=== PATIENT | female | born 1995 | race Caucasian/White ===

== ENCOUNTER 2023-04-25 17:02 | Emergency (ER) | payer OTHER, SELFPAY ==
--- NOTE | 2023-04-25 18:02 | ED.HA ---
HPI - Headache General Chief Complaint: Headache Stated Complaint: migraine 12 wks Time Seen by Provider: 04/25/23 20:59 Source: patient Mode of arrival: ambulatory Limitations: no limitations History of Present Illness HPI Narrative: Patient comes to the emergency room complaining of 3 hours of a migraine headache. Patient states that she has blurred vision out of her left eye, severe headache on the right side. Patient states that she has never had migraines before. Patient complaining of nausea, no vomiting or diarrhea. Patient denies any abdominal cramping, no spotting or vaginal bleeding. Patient states that prior to arrival she took Tylenol without any relief Related Data Allergies Allergy/AdvReac Type Severity Reaction Status Date / Time No Known Allergies Allergy Verified 04/25/23 18:02 Review of Systems Review of Systems: Constitutional : No Weight loss, No Fever, No Chills, No Night Sweats, No Fatigue, No Malaise ENT/Mouth : No Hearing loss, No Ear Pain, No Nasal Congestion, No Sinus Pain, No Hoarseness, No sore throat, No Rhinorrhea, No Swallowing Difficulty Eyes: No Eye Pain, No Swelling, No Redness, No Foreign Body, No Discharge, No Vision Changes Cardiovascular : No Chest Pain, No SOB, No Dyspnea on Exertion, No Orthopnea, No Edema, No Palpitations Respiratory : No Cough, No Sputum, No Wheezing, No Smoke Exposure, No Dyspnea Gastrointestinal : No Nausea, No Vomiting, No Diarrhea, No Constipation, No abdominal Pain, No Hematochezia, No Melena Genitourinary : no irregular bleeding, No Dysuria, No Urinary Frequency, No Hematuria, No Urinary Incontinence, No Urgency, No Flank Pain, No Urinary Flow Changes, No Hesitancy Musculoskeletal : No joint pain, No Myalgias, No Joint Swelling Skin : No Skin Lesions, No rash Neuro : No Weakness, No Numbness, No Paresthesias, No Loss of Consciousness, No Dizziness, complaining of headache, visual changes Psych : No Anxiety/Panic, No Depression, No SI/HI/AH/VH, No Social Issues, Heme/Lymph: No Bruising, No Bleeding,No Lymphadenopathy Endocrine : No Polyuria, No Polydipsia, No Temperature Intolerance PMFSH Social History Social History Smoked in Last 30 Days: No Use of substances other than those prescribed or required for medical reasons: No Advance Directives: No Advance Directives Information Provided: No Patient : Yes Physical Exam Vital Signs: Vital Signs: Last Vital Signs Temp 98.3 F 04/25/23 20:51 Pulse 80 04/25/23 20:51 Resp 18 04/25/23 20:51 BP 101/64 04/25/23 20:51 Pulse Ox 99 04/25/23 20:51 O2 Del Method Room Air 04/25/23 20:51 BMI result Body Mass Index 34.0 Const: Other: Appearance: Alert. Oriented X3. No acute distress. Well-appearing Eyes: Pupils equal, round and reactive to light. Patient has photophobia ENT: Pharynx normal. Neck: Normal inspection. Neck supple. No lymph nodes noted. No crepitus CVS: Normal heart rate and rhythm. Pulses normal. Normal S1 and S2 Respiratory: No respiratory distress. Breath sounds normal. No Wheezing. No rales Abdomen: Soft and nontender. No rigidity. No distention. Skin: Skin warm and dry. Normal skin color. Normal skin turgor. Extremities: No lower extremity edema. No Lacerations. No Rash Neuro: Oriented X 3. No motor deficit. No sensory deficit. Moving all extremities. No slurred speech. CN 2 through 12 grossly intact Psych: calm, cooperative, normal affect Course Course Course Narrative: RME: Right sided headache with left sided vision changes. No Tylenol use as she states that she does not 'do well' with pills and vomits. 12 weeks , followed by [facility], with light vaginal bleeding daily. Has had an ultrasound with progressing Reevaluation(s) Reevaluation #1: 27-year-old female 12 weeks seen initially by Dr. Henry patient was given IV fluids/Benadryl/Reglan/morphine. Patient reported improvement after the fluids and the medication, no significant symptoms at this point, declined abdominal pain or cramps, no vaginal bleeding. Patient is requesting to go home and sleep it off. Time: 12:00 Medications Administered Discontinued Medications Generic Name Dose Route Start Last Admin Trade Name Freq PRN Reason Stop Dose Admin Acetaminophen 650 mg 04/25/23 18:05 04/25/23 21:15 Acetaminophen Oral Liquid 650 Mg/20.3 Ml Solution PO 04/25/23 18:06 Not Given ONCE ONE Diphenhydramine HCl 25 mg 04/25/23 21:04/25/23 21:21 Diphenhydramine Hcl 50 Mg/Ml Vial IVPUSH 04/25/23 21:07 25 mg ONCE ONE Administration Sodium Chloride 1,000 mls @ 999 mls/hr 04/25/23 21:05 04/25/23 21:20 Ns IVCONT 04/25/23 22:05 999 mls/hr .Q1H1M ONE Administration Metoclopramide HCl 10 mg 04/25/23 21:05 04/25/23 21:22 Metoclopramide Hcl 10 Mg/2 Ml Vial IVPUSH 04/25/23 21:06 10 mg ONCE ONE Administration Morphine Sulfate 4 mg 04/25/23 21:05 04/25/23 21:21 Morphine Sulfate 4 Mg/Ml Cartridge IVPUSH 04/25/23 21:06 4 mg ONCE ONE Administration Protocol Medical Decision Making Medical Decision Making [facility] Narrative: My interpretation of labs: Patient has normal hematology and chemistry. -at this time, patient awaiting medication administration: IV fluids, Reglan, Benadryl, morphine -sign-out given to my colleague Dr. Ruiz Differential Diagnosis Differential Diagnoses: The differential diagnosis associated with the presentation includes (Tension headache, migraine headache, cluster headache) Admission/Observation Consideration of admission/observation: Escalation of care including admission/observation considered (Given patient's presentation, admission considered) Lab Data [facility] Lab Attestation statement: I reviewed the patient's lab results. 04/25/23 18:58 04/25/23 18:58 Labs: Lab Results 04/25/23 Range/Units 18:58 WBC 8.8 (4.8-10.8) X10*3/uL RBC 4.41 (4.20-5.50) X10*6/uL Hgb 12.5 (12.0-16.0) g/dl Hct 37.1 (37.0-47.0) % MCV 84.1 (80.0-98.0) fL MCH 28.3 (27.0-33.0) pg MCHC 33.7 (31.0-35.0) g/dl RDW 13.4 (11.0-16.0) % Plt Count 241 (160-400) X10*3/uL MPV 10.5 (9.4-12.3) fL Immature Gran % (Auto) 0.2 (0.0-0.4) % Neut % (Auto) 69.9 (45-73) % Lymph % (Auto) 23.7 (20-40) % Blanco % (Auto) 5.8 (2-11) % Eos % (Auto) 0.2 (0-4) % Baso % (Auto) 0.2 (0-2) % Lymph # (Auto) 2.1 (1.2-4.9) X10*3/uL Blanco # (Auto) 0.5 (0.1-1.2) X10*3/uL Eos # (Auto) 0.0 (0.0-0.4) X10*3/uL Baso # (Auto) 0.0 (0.0-0.2) X10*3/uL Abs Immat Gran (auto) 0.02 (0.00-0.03) X10*3/uL Absolute Neuts (auto) 6.1 (2.0-8.3) x10*3/uL Absolute Nucleated RBC 0.000 (0.0-0.012) X10*3/uL Nucleated RBC % (auto) 0.0 (0.0-0.2) /100WBC Sodium 142 (135-145) mmol/L Potassium 3.4 (3.3-5.1) mmol/L Chloride 108 (96-108) mmol/L Carbon Dioxide 23 (22-29) mmol/L Anion Gap 14 (12-20) BUN 6 L (9-16) mg/dL Creatinine 0.54 (0.5-1.4) mg/dL Estim Creat Clear Calc 162.2 Estimated GFR > 60 Random Glucose 76 (60-115) mg/dL Calcium 9.5 (8.4-10.2) mg/dL Total Bilirubin 0.3 (0.0-1.0) mg/dL AST 12 (5-31) U/L ALT 8 (0-31) U/L Alkaline Phosphatase 78 (39-117) U/L Total Protein 7.2 (6.5-8.0) g/dL Albumin 3.9 (3.5-5.0) g/dL Beta HCG, Quant 58308 mIU/mL Critical Care Time Critical Care Time Critical Care Time: Yes Total Critical Care Time: 45 Attestation: I have personally provided critical care time. Time includes review of lab data, radiology results, discussion with consultants, and monitoring for potential decompensation. Intervention performed as documented. Discharge Plan Discharge Clinical Impression: Migraine Patient Disposition: Home, Self-Care Instructions: Migraine Headache (ED) Additional Instructions: Drink plenty fluids, if the headache persist or getting worse please return for re-evaluation otherwise follow-up with OB.
[2023-04-25 18:03] VITALS: BP 127/88; PULSE 92; RESP 16; O2SAT 98; BMI 34.0
[2023-04-25 19:06] LABS: MANUAL DIFF FLAG NO
[2023-04-25 19:07] LABS: Basophils Percent Auto 0.2 % (0-2); Eosinophils Percent Auto 0.2 % (0-4); Hematocrit 37.1 % (37.0-47.0); Hemoglobin 12.5 g/dl (12.0-16.0); Imm Gran Abs Auto 0.02 X10*3/uL (0.00-0.03); Imm Gran Pct Auto 0.2 % (0.0-0.4); Lymphocytes Absolute Auto 2.1 X10*3/uL (1.2-4.9); Lymphocytes Percent Auto 23.7 % (20-40); Mean Corpuscular HGB Conc 33.7 g/dl (31.0-35.0); Mean Corpuscular Hemoglobin 28.3 pg (27.0-33.0); Mean Corpuscular Volume 84.1 fL (80.0-98.0); Mean Platelet Volume 10.5 fL (9.4-12.3); Monocytes Absolute Auto 0.5 X10*3/uL (0.1-1.2); Monocytes Percent Auto 5.8 % (2-11); Neutrophils Absolute Auto 6.1 x10*3/uL (2.0-8.3); Neutrophils Percent Auto 69.9 % (45-73); Platelet Count 241 X10*3/uL (160-400); Red Blood Count 4.41 X10*6/uL (4.20-5.50); Red Cell Distribution Width 13.4 % (11.0-16.0); White Blood Count 8.8 X10*3/uL (4.8-10.8)
[2023-04-25 19:22] LABS: Alanine Aminotransferase 8 U/L (0-31); Albumin Level 3.9 g/dL (3.5-5.0); Alkaline Phosphatase 78 U/L (39-117); Anion Gap 14 (12-20); Aspartate Amino Transferase 12 U/L (5-31); Bilirubin Total 0.3 mg/dL (0.0-1.0); Blood Urea Nitrogen 6 mg/dL (9-16); Calcium 9.5 mg/dL (8.4-10.2); Carbon Dioxide 23 mmol/L (22-29); Chloride 108 mmol/L (96-108); Creatinine Clr Calc Pharmacy 162.2; Estimated Glomerular Filt Rate > 60; Glucose Random 76 mg/dL (60-115); Potassium 3.4 mmol/L (3.3-5.1); Sodium 142 mmol/L (135-145); Total Protein 7.2 g/dL (6.5-8.0)
[2023-04-25 19:48] LABS: HCG Quantitative 61384 mIU/mL
[2023-04-25 20:51] VITALS: BP 101/64; PULSE 80; RESP 18; TEMP 36.8; O2SAT 99
[2023-04-25] MEDS: 0.9 % Sodium Chloride 1,000 ML 999 ML IVCONT (21:20)
[2023-04-25] MEDS: diphenhydrAMINE HCL 50 MG/ML VIAL 25 MG IVPUSH (21:21)
[2023-04-25] MEDS: Morphine Sulfate 4 MG/ML CARTRIDGE IVPUSH (21:21)
[2023-04-25] MEDS: Metoclopramide HCl 10 MG/2 ML VIAL IVPUSH (21:22)
--- OUTSIDE RECORDS SUMMARY | 2023-04-25 22:28 | XMS_ITS | Continuity of Care Document ---
Author Name Unknown Organization [facility] ter Address [address] [place] [address]- Care Team Providers Care Package Maker Name Role Phone Not on Staff, PCP Primary Care Physician Unavail able Encounter [facility] [place] Date(s): 10/24/19 - 10/25/[address] [address]- [facility] Discharge Disposition: A-D/C Home Attending Physician: Tomazs Fournier MD Admitting Physician: Tomasz Fournier MD Referring Physician: Not on Staff, Referring MD Allergies, Adverse Reactions, Alerts No Known Medication Allergies Immunizations Given and Recorded Vaccine Date Status Refusal Reason influenza virus vaccine, inactivated 1 04/20/18 Gi randal 1Early/Late Reason: Other : patient sleeping Medications acetaminophen 325 mg oral tablet 650 mg, By Mouth, Every 6 hours, # 30 tablet, Refills 0, Tot. Refills 0, Maintenance, 04/21/18 14:53:56 EST, Route to Pharmacy Electronically, [id number], [facility] Start Date: 04/21/18 Status: Ordered docusate sodium 100 mg oral capsule 100 mg, 1, capsule, By Mouth, 2 times a day, # 60 capsule, Refills 0, Tot. Refills 0, Maintenance, 04/21/18 15:05:27 EST, Route to Pharmacy Electronically, [id number], [facility] Start Date: 04/21/18 Status: Ordered ferrous sulfate 325 mg oral tablet 1 tablet = 325 mg, By Mouth, Daily, 0 Refills, Maintenance, 04/19/18 21:20:13 EST Start Date: 04/19/18 Status: Ordered ibuprofen 800 mg oral tablet 800 mg, By Mouth, Every 8 hours, PRN, (4-6), may give 400mg per patient preference and re-dose syic125pi within 8 hours if needed. Patient should only receive a total of 800mg of Ibuprofen every 8 hours., Refills 0, Maintenance, Pain , Moderate, 02... Start Date: 05/13/18 Status: Ordered naproxen 500 mg oral delayed release tablet 1 tablet = 500 mg, By Mouth, 2 times a day, for 7 days, do not chew or break tablets with food, # 14 tablet, 0 Refills, Acute 11/01/19 7:31:00 EDT, 10/25/19 7:31:00 EDT, EC Tablet, [facility] #[id number], 160, cm, 05/13/18 9:49:00 EST, Height, 9... Start Date: 10/25/19 Stop Date: 11/01/19 Status: Ordered oxyCODONE 5 mg oral tablet 5 mg, 1, tablet, By Mouth, Every 6 hours, PRN, for 5 days, Do not drive or drink alcohol while taking this medication. Partial fill of Rx is OK., # 20 tablet, Refills 0, Tot. Refills 0, Acute 10/30/19 7:31:00 EDT, for pain, 10/25/19 7:31:00 EDT, Ro... Start Date: 10/25/19 Stop Date: 10/30/19 Status: Ordered Multivitamins By Mouth, Daily, 0 Refills, Maintenance, 04/19/18 21:20:34 EST Start Date: 04/19/18 Status: Ordered Senna 8.6 mg oral tablet 17.2 mg, 2, tablet, By Mouth, Daily, PRN, # 12 tablet, Refills 0, Tot. Refills 0, Maintenance, Constipation, 04/21/18 15:05:43 EST, Route to Pharmacy Electronically, [id number], [facility] Tablet Start Date: 04/21/18 Status: Ordered Problem List Condition Effective Dates Status Health Status Inform ant Anemia(Confirmed) Active Immune thrombocytopenia(Confirmed) Active Tachycardia(Confirmed) Active Results Radiology Reports * Exam Date Time Procedure Performing Provider Status 10/25/19 12:39 AM Knee 1 or 2 Views Right Platt, Geovanna M; Auth (Verified) Notes: (Knee 1 or 2 Views Right) Reason For Exam: with Pain;Trauma RESULT: Knee 1 or 2 Views Right Knee 1 or 2 Views Right, 2 views Reason: Trauma; with Pain; Clinical Question(s): Fracture COMPARISON: None. FINDINGS: There is no evidence of acute or healing fracture, dislocation or bone lesion. No arthritic changes. No osteochondral defects or intra-articular loose bodies. No evidence of joint effusion. Normal soft tissues. IMPRESSION: Normal. WSN: [id number] Ordering Physician: Bud Mayo Dictated By: Marcos Null MD Dictated Date/Time: 10/25/19 8:07 am Reviewed By: Marcos Null MD Signed By: Marcos Null MD Signed Date/Time: 10/25/19 8:07 am Transcribed By: HARJINDER Transcribed Date/Time: 10/25/19 8:07 am * Exam Date Time Procedure Performing Provider Status 10/25/19 12:39 AM Ankle Min 3 Views Right Geovanna Platt (Verified) Notes: (Ankle Min 3 Views Right) Reason For Exam: with Pain;Trauma RESULT: Ankle Min 3 Views Right Ankle Min 3 Views Right Reason: Trauma; with Pain; Clinical Question(s): Fracture. COMPARISON: None. FINDINGS: No evidence of acute or healing fracture or bone lesion. No malalignment. Intact ankle mortise and talar dome. No arthritic changes. Marked soft tissue swelling most prominent laterally. IMPRESSION: No fracture or dislocation. Lateral soft tissue swelling. WSN: [id number] Ordering Physician: Bud Mayo Dictated By: Marcos Null MD Dictated Date/Time: 10/25/19 8:07 am Reviewed By: Marcos Null MD Signed By: Marcos Null MD Signed Date/Time: 10/25/19 8:07 am Transcribed By: CSKeyanna Transcribed Date/Time: 10/25/19 8:06 am Vital Signs Most recent to oldest [Reference Range]: 1 2 3 Oxygen Saturation [94-100 %] 99 % (10/25/19 6:00 AM) 98 % (10/25/19 4:53 AM) 97 % (10/25/19 3:00 AM) Pulse Rate [55-90 bpm] 83 bpm (10/25/19 6:00 AM) 89 bpm (10/25/19 4:53 AM) 100 bpm *H* (10/25/19 3:00 AM) Blood Pressure [90-138/55-84 mm Hg] 121/60mm Hg (10/25/19 6:00 AM) 124/76mm Hg (10/25/19 4:53 AM) 129/76mm Hg (10/25/19 3:00 AM) Respiratory Rate [16-30 br/min] 20 br/min (10/25/19 7:20 AM) 15 br/min *L* (10/25/19 7:07 AM) 16 br/min (10/25/19 6:00 AM) Temperature [96.8-100.4 DegF] 97.9 DegF (10/25/19 4:53 AM) 99.5 DegF (10/24/19 11:27 PM) Mode of Delivery (Oxygen) Room air (10/25/19 6:00 AM) Room air (10/25/19 4:53 AM) Room air (10/25/19 3:00 AM) Blood pressure sites Arm, left (10/25/19 6:00 AM) Arm, left (10/25/19 4:53 AM) Arm, left (10/25/19 3:00 AM) Temperature Route Oral (10/25/19 4:53 AM) Oral (10/24/19 11:27 PM) Social History Social History Type Response Smoking Status Never (less than 100 in lifetime); Tobacco user in household: No entered on: 05/10/18 Sex
--- OUTSIDE RECORDS SUMMARY | 2023-04-25 22:28 | XMS_ITS | Continuity of Care Document ---
Author Name Unknown Organization [facility] ter Address [address] [place] [address]- Care Team Providers Care Payroll Examiner Name Role Phone Not on Staff, PCP Primary Care Physician Unavail able Encounter [facility] Date(s): 01/10/20 - 01/10/[address] [address] Encounter Diagnosis Acute sore throat(Final) - 01/10/20 Discharge Disposition: A-D/C Home Attending Physician: Jose BONILLA (ED), Rebecca Samuel Admitting Physician: Jose BONILLA (ED), Rebecca Samuel Referring Physician: Not on Staff, Referring MD [...] 04/21/18 14:53:56 EST, Route to Pharmacy Electronically, [id number], [facility] Start Date: 04/21/18 Status: Ordered docusate sodium 100 mg oral capsule 100 mg, 1, capsule, By Mouth, 2 times a day, # 60 capsule, Refills 0, Tot. Refills 0, Maintenance, 04/21/18 15:05:27 EST, Route to Pharmacy Electronically, [id number], [facility] Start Date: 04/21/18 Status: Ordered ferrous sulfate 325 mg oral tablet 1 tablet = 325 mg, By Mouth, Daily, 0 Refills, Maintenance, 04/19/18 21:20:13 EST Start Date: 04/19/18 Status: Ordered ibuprofen 600 mg oral tablet 600 mg, 1, tablet, By Mouth, 4 times a day, PRN, # 40 tablet, Refills 0, Tot. Refills 0, Acute 01/20/20 12:00:00 EST, for pain, 01/10/20 13:59:00 EDT, Route to Pharmacy Electronically, [facility] #[id number], 160, cm, 05/13/18 9:49:00 EST, Height... Start Date: 01/10/20 Stop Date: 01/20/20 Status: Ordered Magic Mouthwash Magic Mouthwash, See Instructions, # 90 mL, Refills 0, Tot. Refills 0, Maintenance, Mix equal parts(30 mL each) of liquid Maalox, liquid Benadryl (12.5 mg/5 mL) and vicscous lidocaine. Take 5 mL TIDfor swish and spit, 01/10/20 13:59:00 EDT, Supply,... Start Date: 01/10/20 Status: Ordered ondansetron 4 mg oral tablet, disintegrating 1 tablet = 4 mg, By Mouth, Every 8 hours, PRN as needed for nausea/vomiting, # 10 tablet, 0 Refills, Maintenance, 01/10/20 14:51:00 EDT, DIS Tablet, [facility] #[id number], 160, cm, 05/13/18 9:49:00 EST, Height, 90, kg, 05/10/18 22:13:00 EST, Dry... Start Date: 01/10/20 Status: Ordered Multivitamins By Mouth, Daily, 0 Refills, Maintenance, 04/19/18 21:20:34 EST Start Date: 04/19/18 Status: Ordered Senna 8.6 mg oral tablet 17.2 mg, 2, tablet, By Mouth, Daily, PRN, # 12 tablet, Refills 0, Tot. Refills 0, Maintenance, Constipation, 04/21/18 15:05:43 EST, Route to Pharmacy Electronically, [id number], [facility] Tablet Start Date: 04/21/18 Status: Ordered Problem List Condition Effective Dates Status Health Status Inform ant Anemia(Confirmed) Active Immune thrombocytopenia(Confirmed) Active Tachycardia(Confirmed) Active Vital Signs Most recent to oldest [Reference Range]: 1 2 Oxygen Saturation [94-100 %] 100 % (01/10/20 2:25 PM) 100 % (01/10/20 12:47 PM) Pulse Rate [55-90 bpm] 102 bpm *H* (01/10/20 2:25 PM) 139 bpm *H* (01/10/20 12:47 PM) Blood Pressure [90-138/55-84 mm Hg] 101/ 59mm Hg (01/10/20 2:25 PM) 116/79mm Hg (01/10/20 12:47 PM) Respiratory Rate [16-30 br/min] 18 br/mi n (01/10/20 2:25 PM) 18 br/min (01/10/20 12:47 PM) Temperature [96.8-100.4 DegF] 100.1 DegF (01/10/20 2:25 PM) 102.9 DegF *H* (01/10/20 12:47 PM) Mode of Delivery (Oxygen) Room air (01/10/20 2:25 PM) Room air (01/10/20 12:47 PM) Blood pressure sites Arm, left (01/10/20 2:25 PM) Arm, left (01/10/20 12:47 PM) Temperature Route Oral (01/10/20 2:25 PM) Oral (01/10/20 12:47 PM) Social History Social History Type Response Smoking Status Never (less than 100 in lifetime); Tobacco user in household: No entered on: 05/10/18 Sex
--- OUTSIDE RECORDS SUMMARY | 2023-04-25 22:28 | XMS_ITS | Continuity of Care Document ---
Author Name Unknown Organization [facility] ter Address [address] [place] [address]- Care Team Providers Care Family Therapist Name Role Phone Not on Staff, PCP Primary Care Physician Unavail able [place] [facility] [place] 04/01/[address] [address]- Discharge Disposition: Transferred to short-term general hospit Attending Physician: Yoandy Stubbs MD Admitting Physician: Yoandy Stubbs MD Referring Physician: Not on Staff, Referring [...] 04/21/18 14:53:56 EST, Route to Pharmacy Electronically, [id number], [facility] Start Date: 04/21/18 Status: Ordered docusate sodium 100 mg oral capsule 100 mg, 1, capsule, By Mouth, 2 times a day, # 60 capsule, Refills 0, Tot. Refills 0, Maintenance, 04/21/18 15:05:27 EST, Route to Pharmacy Electronically, [id number], [facility] Start Date: 04/21/18 Status: Ordered ferrous sulfate 325 mg oral tablet 1 tablet = 325 mg, By Mouth, Daily, 0 Refills, Maintenance, 04/19/18 21:20:13 EST Start Date: 04/19/18 Status: Ordered Magic Mouthwash Magic Mouthwash, See [...] Refills, Maintenance, 01/10/20 14:51:00 EDT, DIS Tablet, [facility] #[id number], 160, cm, 05/13/18 9:49:00 EST, Height, 90, kg, 05/10/18 22:13:00 EST, Dry... Start Date: 01/10/20 Status: Ordered Multivitamins By Mouth, Daily, 0 Refills, Maintenance, 04/19/18 21:20:34 EST Start Date: 04/19/18 Status: Ordered Senna 8.6 mg oral tablet 17.2 mg, 2, tablet, By Mouth, Daily, PRN, # 12 tablet, Refills 0, Tot. Refills 0, Maintenance, Constipation, 04/21/18 15:05:43 EST, Route to Pharmacy Electronically, [id number], [facility] Tablet Start Date: 04/21/18 Status: Ordered Problem List Condition Confirmation Course Effective Dates Status H ealth Status Informant Anemia Confirmed Active Immune thrombocytopenia Confirmed Active Tachycardia Confirmed Active Vital Signs Most recent to oldest [Reference Range]: 1 2 Height 158 cm (04/01/23 2:01 PM) Oxygen Saturation [94-100 %] 100 % (04/01/23 2:01 PM) 99 % (04/01/23 1:59 PM) Pulse Rate [55-90 bpm] 104 bpm *H* (04/01/23 2:01 PM) 130 bpm *H* (04/01/23 1:59 PM) Blood Pressure [90-138/55-84 mm Hg] 138/ 96mm Hg (04/01/23 2:01 PM) Respiratory Rate [16-30 br/min] 22 br/mi n (04/01/23 2:01 PM) 18 br/min (04/01/23 1:59 PM) Temperature [96.8-100.4 DegF] 97.9 DegF (04/01/23 2:01 PM) Mode of Delivery (Oxygen) Room air (04/01/23 2:01 PM) Room air (04/01/23 1:59 PM) Temperature Route Oral (04/01/23 2:01 PM) Dry Weight 90.8 kg (04/01/23 2:01 PM) Social History Social History Type Response Smoking Status Never (less than 100 in lifetime); Tobacco user in household: No entered on: 05/10/18 Sex Patient Care team information Care Team Personnel Name: Not on Staff, PCP Position: [facility] Physician (General Medicine) Member Role: PCP Name: Hank PAREDES, Janki Friend Position: [facility] Onco RN Member Role: Primary Care Nurse Care Team Related Persons Name: NOA KEYES Address: home [address] [place] [id number] Name: MIHIR ODOM Name: KAROL CERRATO Address: [employer] Address: home [address] [place] [address]
--- OUTSIDE RECORDS SUMMARY | 2023-04-25 22:28 | XMS_ITS | Continuity of Care Document ---
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 Name Role Phone Not on Staff, PCP Primary Care Physician Unavail able Encounter [facility] [place] Date(s): 08/02/22 - 08/02/[address] [address]- Discharge Disposition: A-D/C Walkout Attending Physician: Not on Staff, Attending MD Admitting Physician: Not on Staff, Admitting MD Referring Physician: Not on Staff, Referring [...] 04/21/18 14:53:56 EST, Route to Pharmacy Electronically, [id number], [facility] Start Date: 04/21/18 Status: Ordered docusate sodium 100 mg oral capsule 100 mg, 1, capsule, By Mouth, 2 times a day, # 60 capsule, Refills 0, Tot. Refills 0, Maintenance, 04/21/18 15:05:27 EST, Route to Pharmacy Electronically, [id number] , [facility] Start Date: 04/21/18 Status: [...] Refills, Maintenance, 01/10/20 14:51:00 EDT, DIS Tablet, [id number], 160, cm, 05/13/18 9:49:00 EST, Height, 90, kg, 05/10/18 22:13:00 EST, Dry... Start Date: 01/10/20 Status: Ordered Multivitamins By Mouth, Daily, 0 Refills, Maintenance, 04/19/18 21:20:34 EST Start Date: 04/19/18 Status: Ordered Senna 8.6 mg oral tablet 17.2 mg, 2, tablet, By Mouth, Daily, PRN, # 12 tablet, Refills 0, Tot. Refills 0, Maintenance, Constipation, 04/21/18 15:05:43 EST, Route to Pharmacy Electronically, [id number], [facility] Tablet Start Date: 04/21/18 Status: Ordered Problem List Condition Confirmation Course Effective Dates Status H ealth Status Informant Anemia Confirmed Active Immune thrombocytopenia Confirmed Active Tachycardia Confirmed Active Results Radiology Reports * Exam Date Time Procedure Performing Provider Status 08/02/22 8:20 AM Ankle Min 3 Views Left Donovan Carrera ; Auth (Verified) Notes: (Ankle Min 3 Views Left) Reason For Exam: Pain RESULT: Ankle Min 3 Views Left Left ankle 3 views Hx of Present Illness: Pain after twisting injury COMPARISON: None. FINDINGS: No evidence of acute or healing fracture or bone lesion. Intact ankle mortise and talar dome. No arthritic changes. Moderate lateral swelling. IMPRESSION: Lateral swelling but otherwise negative. WSN: [id number] Ordering Physician: Av Desai Dictated By: Flex Meyer MD Dictated Date/Time: 08/02/22 8:22 am Reviewed By: Flex Meyer MD Signed By: Flex Meyer MD Signed Date/Time: 08/02/22 8:22 am Transcribed By: HARJINDER Transcribed Date/Time: 08/02/22 8:21 am Vital Signs Most recent to oldest [Reference Range]: 1 2 Height 160 cm (08/02/22 7:44 AM) Oxygen Saturation [94-100 %] 100 % (08/02/22 9:40 AM) 100 % (08/02/22 7:44 AM) Pulse Rate [55-90 bpm] 113 bpm *H* (08/02/22 9:40 AM) 106 bpm *H* (08/02/22 7:44 AM) Blood Pressure [90-138/55-84 mm Hg] 122/ 55mm Hg (08/02/22 9:40 AM) 130/76mm Hg (08/02/22 7:44 AM) Respiratory Rate [16-30 br/min] 16 br/mi n (08/02/22 9:40 AM) 20 br/min (08/02/22 7:44 AM) Temperature [96.8-100.4 DegF] 98.3 DegF (08/02/22 9:40 AM) 97.7 DegF (08/02/22 7:44 AM) Mode of Delivery (Oxygen) Room air (08/02/22 9:40 AM) Room air (08/02/22 7:44 AM) Blood pressure sites Arm, left (08/02/22 9:40 AM) Arm, left (08/02/22 7:44 AM) Temperature Route Oral (08/02/22 9:40 AM) Oral (08/02/22 7:44 AM) Dry Weight 91 kg (08/02/22 7:44 AM) Social History Social History Type Response Smoking Status Never (less than 100 in lifetime); Tobacco user in household: No entered on: 05/10/18 Sex XR Ankle - left GE 3 Views * [facility] , CIS S: TRANSCRIBE Flex Meyer MD: VERIFY Event Display: Result: Authored Date: [id number] Left ankle 3 views Hx of Present Illness: Pain after twisting injury COMPARISON: None. FINDINGS: No evidence of acute or healing fracture or bone lesion. Intact ankle mortise and talar dome. No arthritic changes. Moderate lateral swelling. IMPRESSION: Lateral swelling but otherwise negative. WSN: [id number] Ordering Physician: Av Desai Dictated By: Flex Meyer MD Dictated Date/Time: 08/02/22 8:22 am Reviewed By: Flex Meyer MD Signed By: Flex Meyer MD Signed Date/Time: 08/02/22 8:22 am Transcribed By: HARJINDER Transcribed Date/Time: 08/02/22 8:21 am Patient Care team information Care Team Personnel Name: Not on Staff, PCP Position: [facility] Physician (General Medicine) Member Role: PCP Name: Janki Mckinney RN Position: [facility] Onco RN Member Role: Primary Care Nurse Care Team Related Persons Name: NOA KEYES Address: [place] [address] Name: MIHIR ODOM Name: KAROL CERRATO Address: [place] Address: home [address] [place] [address]
--- OUTSIDE RECORDS SUMMARY | 2023-04-25 22:28 | XMS_ITS | Continuity of Care Document ---
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 Name Role Phone Not on Staff, PCP Primary Care Physician Unavail able [place] [facility] [place]/01/[address] [address] Discharge Disposition: A-D/C Home Attending Physician: Pam Lemus MD Admitting Physician: Pam Lemus MD Referring Physician: Pam Lemus MD Allergies, Adverse Reactions, Alerts No Known Medication Allergies Immunizations Given and Recorded Vaccine Date Status Refusal Reason influenza virus vaccine, inactivated 1 04/20/18 Gi randal 1Early/Late Reason: Other : patient sleeping Medications acetaminophen 325 mg oral tablet 650 mg, By Mouth, Every 6 hours, # 30 tablet, Refills 0, Tot. Refills 0, Maintenance, 04/21/18 14:53:56 EST, Route to Pharmacy Electronically, [id number], [facility] Start Date: 04/21/18 Status: Ordered docusate sodium 100 mg oral capsule 100 mg, 1, capsule, By Mouth, 2 times a day, # 60 capsule, Refills 0, Tot. Refills 0, Maintenance, 04/21/18 15:05:27 EST, Route to Pharmacy Electronically, [id number], [facility] Start Date: 04/21/18 Status: [...] Refills, Maintenance, 01/10/20 14:51:00 EDT, DIS Tablet, [id number], 160, cm, 05/13/18 9:49:00 EST, Height, 90, kg, 05/10/18 22:13:00 EST, Dry... Start Date: 01/10/20 Status: Ordered Multivitamins By Mouth, Daily, 0 Refills, Maintenance, 04/19/18 21:20:34 EST Start Date: 04/19/18 Status: Ordered Senna 8.6 mg oral tablet 17.2 mg, 2, tablet, By Mouth, Daily, PRN, # 12 tablet, Refills 0, Tot. Refills 0, Maintenance, Constipation, 04/21/18 15:05:43 EST, Route to Pharmacy Electronically, [id number], [facility] Tablet Start Date: 04/21/18 Status: Ordered Problem List Condition Confirmation Course Effective Dates Status H ealth Status Informant Anemia Confirmed Active Immune thrombocytopenia Confirmed Active Tachycardia Confirmed Active Results Radiology Reports * Exam Date Time Procedure Performing Provider Status 04/01/23 4:54 PM US Transab d 1st Trimester Only Can Faith; Auth (Verified) Notes: (US Transabd 1st Trimester Only) Reason For Exam: Bleeding RESULT: US Transabd 1st Trimester Only US Transabd 1st Trimester Only Reason: Bleeding; Clinical Question(s): Demise; Order Comment: US < 14 Week 0 Day Transabdominal Single Prep COMPARISON: TECHNIQUE: Transabdominal pelvic ultrasound with grayscale and color Doppler analysis. FINDINGS: UTERUS AND GESTATIONAL STRUCTURES: Normal gestational sac containing a yolk sac is identified within the endometrial cavity. Single intrauterine with heart rate 85 BPM. Colma-rump length (CRL): 2.2 cm. Ultrasound age of 8w6d. Uterus: 11.9 x 6.8 x 8.6 cm, volume 365.0 cc. No masses. No abnormalities of the cervix. RIGHT OVARY: Size: 3.0 x 2.0 x 2.1 cm, volume 6.7 cc. Morphology: Normal echotexture. No pathologic cysts or mass. Normal color Doppler appearance. LEFT OVARY: Size: 2.9 x 2.2 x 2.8 cm, volume 9.3 cc. Morphology: Normal echotexture. No pathologic cysts or mass. Normal color Doppler appearance. FREE FLUID: None. IMPRESSION: Single live intrauterine . Estimated gestational age 8w6d. heart rate of 85 bpm is less than expected for this stage of . Therefore close interval monitoring is recommended. Estimated gestational age by ultrasound is concordant with estimated age by clinical parameters. An actionable message ([place]) has been communicated via the [employer] system on 04/01/2023 5:15 PM, Message ID [id number]. WSN: [id number] Ordering Physician: Cynthia Tamayo Dictated By: Memo Cunningham MD Dictated Date/Time: 04/01/23 5:15 pm Reviewed By: Memo Cunningham MD Signed By: Memo Cunningham MD Signed Date/Time: 04/01/23 5:15 pm Transcribed By: HARJINDER Transcribed Date/Time: 04/01/23 5:08 pm Vital Signs Most recent to oldest [Reference Range]: 1 Weight 88.4 kg (04/01/23 2:39 PM) Oxygen Saturation [94-100 %] 100 % (04/01/23 2:39 PM) Pulse Rate [55-90 bpm] 111 bpm *H* (04/01/23 2:39 PM) Blood Pressure [90-138/55-84 mm Hg] 144/ 82mm Hg *H* (04/01/23 2:39 PM) Respiratory Rate [16-30 br/min] 20 br/mi n (04/01/23 2:39 PM) Temperature [96.8-100.4 DegF] 98 DegF (04/01/23 2:39 PM) Mode of Delivery (Oxygen) Room air (04/01/23 2:39 PM) Blood pressure sites Arm, right 1 (04/01/23 2:39 PM) Temperature Route Oral (04/01/23 2:39 PM) Dry Weight 88.4 kg (04/01/23 2:39 PM) Weight Obtained Via Standing scale (04/01/23 2:39 PM) Dry Weight Obtained Via Standing scale (04/01/23 2:39 PM) 1Result Comment: upper arm measured 32cm Social History Social History Type Response Smoking Status Never (less than 100 in lifetime); Tobacco user in household: No entered on: 05/10/18 Sex Note * Lou Abbott RN: PERFORM Event Display: Discharge/Transfer Note Hospital Authored Date: [id number] Nursing Discharge Note Entered On: 04/01/2023 18:46 EST Performed On: 04/01/2023 18:46 EST by Lou Abbott RN Nursing Discharge Note 2 Discharge Time : 04/01/2023 18:45 EST Discharge Level of Care at Discharge : Home/Senior Living/Foster Care Driver 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 Utilized : No Patient Left Unit Via : Ambulatory Patient Accompanied Off Unit with : Significant other DC Instructions Provided & Signed by Pt : Yes Patient Understands D/C Instructions : Yes Verbalized Understanding of D/C Plan By : Patient Patient Instructions Discharge Signed : Yes Did Pt have Specialty Bed or Wound Vac : No Lou Abbott RN - 04/01/2023 18:46 EST * Lou Abbott RN: PERFORM Event Display: Patient Education/Instruction Authored Date: [id number] Inpatient Adult Discharge Instructions [address] [address] Name: JULIANNA CERRATO : 1995 Visit: 04/01/2023 14:30:00 Current Date: 04/01/2023 18:37 Account: [id number] Inpatient Adult Discharge Instructions We would like to thank you for allowing us to assist you with your healthcare needs. The following includes patient education materials and information regarding your injury/illness. Our entire staffstrives to provide an excellent experience for our patients and their families. PLEASE ENSURE YOU FOLLOW-UP PER THE INSTRUCTIONS BELOW! ?? YOUR OPINION IS IMPORTANT TO US! Please complete the survey you may receive by mail or email. Your feedback will be used to make improvements to the healthcare experiences of our patients and their families. Surveys are administered by [employer] ?? If further treatment with your primary care physician or another doctor is recommended, it is important for you to keep the appointment. Call your primary care physician or return to the Emergency Department immediately if your condition worsens, fails to improve, or new symptoms develop. If you need to find a doctor, you can call [facility] for a referral at [phone] or toll free at [phone] or log in to [email or web address].. ?? [facility], in keeping with [facility] guidance, no longer requires face masks for staff, patientsor visitors in most situations. Similiar to time spent indoors at other locations, there is the chance that you were exposed to repiratory viruses during your time with us (such as flu or COVID-19). If you develop symptoms concerning for a viral respiratory infection, please seek testing (and treatment if indicated) from your medical provider or home test kit. ?? You can view and manage your care through the patient portal or by using a health care harshil of your choosing. [employer] is a website that allows you to securely view your medical information including your hospital discharge summary, office visit summaries, medications and follow-up visits. You can also request appointments, renew medications, and request access to your medical information using a health care harshil of your choosing, or just ask a question. You can enroll at [email or web address] or register during your next office visit. You have been discharged from [facility], Patient Care Unit: WETU1. If you have any questions regarding these instructions after you leave, please call us and we will be happy to assist you. [facility] Your Care Team Attending Physician Pam Lemus MD Tests Performed Below is a partial list of the tests performed during your hospitalization. You may have had other tests and procedures not included in this list. Please discuss all test results with your provider. US Transabd 1st Trimester Only Primary Care Provider Not on Staff, PCP Advance Directive Health Care Proxy on File Yes - Health Care Proxy Discharge Vitals Temperature: 98 DegF Weight: 88.4 kg Pulse Rate:??111 bpm??High ?? Respiratory Rate: 20 br/min ?? Systolic Blood Pressure:??144 mm Hg??High ?? Diastolic Blood Pressure: 82 mm Hg ?? Oxygen Saturation: 100 % ?? Studies Pending All tests and labs ordered during this hospital stay have been completed unless listed below. Please discuss all pending results with your provider listed above in these instructions. ?? No incomplete studies found What to do next Instructions From Your Doctor Discharge Orders You Need to Schedule the Following Appointments Follow Up with??[facility] [phone] When:??In 3 days 04/04/2023 EST Discharge Medications JULIANNA CERRATO :1995 Visit Date:04/01/2023 Medications: Please continue your medications until treatment is completed or stopped by your provider. Medications not listed below should be discontinued. Discuss any questions related to medications with your provider. What How Much When Instructions Next Dose Unchanged Acetaminophen (acetaminophen 325 mg oral tablet) 650 Milligram Oral Every 6 hours Unchanged Docusate (docusate sodium 100 mg oral capsule) 1 capsule Oral Twice a day Unchanged Ferrous Sulfate (ferrous sulfate 325 mg oral tablet) 1 tab(s) Oral Daily Unchanged Miscellaneous Rx (Magic Mouthwash) See instructions Mix equal parts (30 mL each) of liquid Maalox, liquid Benadryl (12.5 mg/ 5 mL) and vicscous lidocaine. Take 5 mL TID for swish and spit ?? Unchanged Multivitamin, ( Multivitamins) Oral Daily Unchanged Ondansetron (ondansetron 4 mg oral tablet, disintegrating) 1 tab(s) Oral Every 8 hours as needed for as needed for nausea/vomiting Unchanged Senna (Senna 8.6 mg oral tablet) 2 tab(s) Oral Daily as needed for Constipation Test Results Below is a partial list of the most recent Laboratory test results done prior to this discharge. You may have had other tests and procedures not included in this list. Please discuss all test resultswith your provider. Allergies (NKA means No Known Allergies) No Known Medication Allergies Problems Active Problems??(4) Anemia?? Immune thrombocytopenia? Tachycardia?? Education Materials Below is the list of Educational Leaflet Providered with your Discharge Instructions. Adapting to : First Trimester?? Possible Miscarriage (Threatened )?? Valuables and Belongings I fully understand and agree that [facility] accepts no responsibility for all my personal property including clothing, toilet articles, radios, jewelry, dentures, hearing aids, rings, money, or any other property that is in my possession or is brought to me after admission. I understand certain valuables may be placed in a hospital safe for a short period of time. I understand that the hospital is not liable for loss or damage due to accident, fire, or other natural occurrence while said property is in the safe. I accept full responsibility for any personal property that I keep with me, and will not hold the hospital responsible in case of loss or disappearance. I acknowledge that i have been encouraged to send valuables and belongings home. ? Other Discharge Information ? Pulmonary Rehab Status?? Pulmonary Rehab Discharge Status?? Respiratory Rate: 20 br/min ? Common Emergency Awareness Tips IS IT A STROKE? Act FAST and Check for these signs: FACE Does the face look uneven? ARM Does one arm drift down? SPEECH Does their speech sound strange? TIME Call at any sign of stroke ?? Heart Attack Signs Chest discomfort: Most heart attacks involve discomfort in the center of the chest and lasts more than a few minutes, or goes away and comes back. It can feel like uncomfortable pressure, squeezing, fullness or pain. Discomfort in upper body: Symptoms can include pain or discomfort in one or both arms, back, neck, jaw or stomach. Shortness of breath: With or without discomfort. Other signs: Breaking out in a cold sweat, nausea, or lightheaded. Remember, MINUTES DO MATTER. If you experience any of these heart attack warning signs, call to get immediate medical attention! ?? Smoking can increase your chances of developing chronic health problems and can cause harmful effects to other family members in your house. If you smoke, you are strongly encouraged to quit. Please call [facility] at [phone] or [phone]) or log in to [email or web address] for referrals to smoking cessation programs. ?? 988 Suicide & Crisis Lifeline is available 08/10 if you or someone you know needs to find a reason to keep living. By calling 988 you'll be connected to a skilled, trained counselor at a crisis center in your area. INPATIENT DISCHARGE INSTRUCTIONS SIGNATURE PAGE JULIANNA CERRATO Location:[facility] Registration Date and Time:04/01/2023 14:30 EST Primary Care Physician: Not on Staff, PCP Attending Physician: Abisai Angelo MD, [facility], I CERRATOJULIANNA, have received the above patient education materials/instructions and have verbalized understanding. If ambulance or transport services are being used I further acknowledge beinggiven a choice of service. ?? If you need to contact me, please call me at this number: . Patient/Toe Closing Machine Tender Name: Patient/Toe Closing Machine Tender Signature: Relationship to Patient: Witness Name/Signature: Date: * Abbott Lou PAREDES: PERFORM Event Display: Patient Education Leaflets Authored Date: [id number] Adapting to : First Trimester ?? [id number] Adapting to : First Trimester As your body adjusts during your first trimester of , you may have to change or limit yourdaily activities. You???ll need more rest. You may also need to use the energy you have more wisely. Your changing body Almost every part of your body is affected as you adapt to . The uterus and cervix will start to soften right away. You may not look very during the first 3 months. But you are likely to have some common signs of early : ??? Nausea ??? Fatigue ??? Frequent urination ??? Mood swings ??? Bloating of the belly ??? Constipation ??? Heartburn ??? Missed or light periods (first trimester bleeding) ??? Nipple or breast tenderness and breast swelling ?? It???s not too late to start good habits What matters most is protecting your baby from this moment on. If you smoke, drink alcohol, or use drugs, now is the time to stop. If you need help, talk with your healthcare provider: ??? Smoking increases the risk of stillbirth??or having a tfo-wcgne-wcvyoz baby. If you smoke, quit now. ??? Alcohol and drugs have been linked with miscarriage, defects, intellectual disability, and low weight. Don't drink alcohol or take drugs. ?? Tips to relieve nausea During , nausea can happen at any time of the day, but it may be worse in the morning. To help prevent nausea: ??? Eat small, light meals at frequent intervals. ??? Drink fluids often. ??? Get up slowly. Eat a few unsalted crackers before you get out of bed. ??? Avoid smells that bother you. ??? Avoid spicy and fatty foods. ??? Eat an ice pop??in your favorite flavor. ??? Get plenty of rest. ??? Ask your healthcare provider about taking kenia or vitamin B6 for nausea and vomiting. ???Talk with your healthcare provider if you take vitamins that upset your stomach. ?? Work concerns The end of the first trimester is a good time to discuss working during with your employer. Follow your healthcare provider???s advice if your job needs you to stand for a long time, work with hazardous tools, or even sit at a desk all day. Your workspace, workload, or scheduled hours mayneed to be adjusted. Perhaps you can change body postures more often or take an extra break. ?? Advice for travel Talk to your healthcare provider first, but the second trimester may be the best time for any travel. You may be advised to avoid certain trips while you???re . Food and water can be concernsin developing countries. Travel by car is a good choice, as you can stop, get out, and stretch. Bring snacks and water along. Fasten the lap belt below your belly, low over your hips. Also be sure to wear the shoulder harness. ?? Intimacy Unless your healthcare provider tells you to, there's no reason to stop having sex while you???re . You or your partner may notice changes in desire. Desire may be less in the first trimesterdue to nausea and fatigue. In the second trimester, sex may be very enjoyable. The third trimester can be a challenge comfort-craig. Try different positions and see what???s best for you both. ?? How daily issues affect your health Many things in your daily life impact your health. This can include transportation, money problems,housing, access to food, and child life assistant. If you can???t get to medical appointments, you may not receive the care you need. When money is tight, it may be difficult to pay for medicines. And living far from a grocery store can make it hard to buy healthy food. If you have concerns in any of these or other areas, talk with your healthcare team. They may know of local resources to assist you. Or they may have a staff person who can help. ?? Last Reviewed Date: 2022 ?? [id number] [employer]. All rights reserved. This information is not intended as a substitute for professional medical care. Always follow your healthcare professional's instructions. ?? * Lou Abbott RN: PERFORM Event Display: Patient Education Leaflets Authored Date: [id number] Possible Miscarriage (Threatened ) ?? [id number] Possible Miscarriage (Threatened ) You may be having a miscarriage. Common signs of a miscarriage are pain and bleeding.??A small amount of bleeding can be normal during the first 3 months of . Often the pain and bleeding stop, and you have a normal and baby.??But heavy bleeding or severe cramping can be an early sign of miscarriage. A miscarriage means??an??unexpected loss of your . At this time, your healthcare provider doesn???t know whether you will have a miscarriage, or if things will clear up and your will continue normally. This can be emotionally difficult. There is little that can be done to change the way you feel. But??understand that miscarriages are common. About 1 or 2 out of every [address] Some even end before you know you are . This happens for a number of reasons, and usually the cause is never known. It???s important youknow that it is not your fault. It didn???t happen because you did anything wrong. Having sex or exercising does not cause a miscarriage. These activities are usually safe unless youhave pain or bleeding, or your healthcare provider tells you to stop. Even minor falls won???t cause a miscarriage. Miscarriages happen because things were not developing as they were supposed to. Nomedicine can prevent a miscarriage. Again, understand that things are uncertain right now. You may still have some bleeding. This may be light spotting or like a period, and you may pass some tissue. You may have some cramping. This iswhy follow-up care is important. Home care To improve the chance of keeping??your , you should take these steps: ??? Rest in bed until the pain and bleeding stop. ??? Don???t have sex until your healthcare provider says it???s OK. ??? Use sanitary napkins instead of tampons. ??? Don???t douche. ??? Don???t take aspirin, ibuprofen, or naproxen. ??? Don???t have alcoholic or caffeinated beverages or smoke. ?? Follow-up care Make an appointment with your healthcare provider within the next week, or as directed. If you had an ultrasound,??a radiologist??will??review??it.??You will be told of any new findings that may affect your care. ?? Call 911 Call 911 if you have: ??? Severe pain and very heavy bleeding ??? Severe lightheadedness, passing out, or fainting ??? Rapid heart rate ??? Trouble breathing ??? Confusion or trouble waking up ?? When to seek medical advice Call your healthcare provider right away??if any of the following occur: ??? Vaginal bleeding or pain that lasts for more than 3 days ??? Heavy bleeding. This means soaking 1 new pad an hour over 3 hours. ??? Fever of 100.4??F (38??C) or higher, or as directed by your healthcare provider ??? Pain in your lower belly (abdomen) that gets worse ??? Weakness or dizziness ??? Passage of anything that resembles tissue. This would be pink or grayish membrane or solid material. Save the tissue in a clean container and bring it to your healthcare provider. ?? Last Reviewed Date: 2021 ?? [id number] [employer]. All rights reserved. This information is not intended as a substitute for professional medical care. Always follow your healthcare professional's instructions. ?? Patient Care team information Care Team Personnel Name: Not on Staff, PCP Position: [facility] Physician (General Medicine) Member Role: PCP Name: Janki Mckinney RN Position: [facility] Onco RN Member Role: Primary Care Nurse Name: Brianna Taveras RN Position: [facility] OB RN Member Role: Patient Care Provider Care Team Related Persons Name: NOA KEYES Address: home [address] [place] [address] Name: MIHIR ODOM Name: CERRATOKAROL Address: [employer] Address: [address]
--- OUTSIDE RECORDS SUMMARY | 2023-04-25 22:28 | XMS_ITS | Continuity of Care Document ---
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 Refills 0, Maintenance, 04/21/18 15:05:27 EST, Route to Pharmacy Electronically, [id number], [facility] Start Date: 04/21/18 Status: [...] Refills, Maintenance, 01/10/20 14:51:00 EDT, DIS Tablet, [id number], 160, cm, 05/13/18 9:49:00 EST, Height, 90, kg, 05/10/18 22:13:00 EST, Dry... Start Date: 01/10/20 Status: Ordered Multivitamins By Mouth, Daily, 0 Refills, Maintenance, 04/19/18 21:20:34 EST Start Date: 04/19/18 Status: Ordered Senna 8.6 mg oral tablet 17.2 mg, 2, tablet, By Mouth, Daily, PRN, # 12 tablet, Refills 0, Tot. Refills 0, Maintenance, Constipation, 04/21/18 15:05:43 EST, Route to Pharmacy Electronically, [id number], [facility] Tablet Start Date: 04/21/18 Status: Ordered Problem List Condition Effective Dates Status Health Status Inform ant Anemia(Confirmed) Active Immune thrombocytopenia(Confirmed) Active Tachycardia(Confirmed) Active Vital Signs Most recent to oldest [Reference Range]: 1 Oxygen Saturation [94-100 %] 100 % (11/12/21 6:49 AM) Pulse Rate [55-90 bpm] 78 bpm (11/12/21 6:49 AM) Blood Pressure [90-138/55-84 mm Hg] 128/ 83mm Hg (11/12/21 6:49 AM) Respiratory Rate [16-30 br/min] 16 br/mi n (11/12/21 6:49 AM) Temperature [96.8-100.4 DegF] 97.9 DegF (11/12/21 6:49 AM) Mode of Delivery (Oxygen) Room air (11/12/21 6:49 AM) Blood pressure sites Arm, right (11/12/21 6:49 AM) Temperature Route Oral (11/12/21 6:49 AM) Social History Social History Type Response Smoking Status Never (less than 100 in lifetime); Tobacco user in household: No entered on: 05/10/18 Sex Care Team Personnel Name: Not on Staff, PCP
--- OUTSIDE RECORDS SUMMARY | 2023-04-25 22:28 | XMS_ITS | Continuity of Care Document ---
Author Name Unknown Organization [facility] Address [address] [place] [address]- Care Team Providers Care Biodiesel Technology Manager Name Role Phone Not on Staff, PCP Primary Care Physician Unavail able Encounter [facility] [place] Date(s): 03/23/20 - 03/23/[address] [address]- Discharge Disposition: A-D/C Walkout Attending Physician: Not [...] 04/21/18 14:53:56 EST, Route to Pharmacy Electronically, [id number], [facility] Start Date: 04/21/18 Status: Ordered docusate sodium 100 mg oral capsule 100 mg, 1, capsule, By Mouth, 2 times a day, # 60 capsule, Refills 0, Tot. Refills 0, Maintenance, 04/21/18 15:05:27 EST, Route to Pharmacy Electronically, [id number], [facility] Start Date: 04/21/18 Status: [...] Refills, Maintenance, 01/10/20 14:51:00 EDT, DIS Tablet, [id number], 160, cm, 05/13/18 9:49:00 EST, Height, 90, kg, 05/10/18 22:13:00 EST, Dry... Start Date: 01/10/20 Status: Ordered Multivitamins By Mouth, Daily, 0 Refills, Maintenance, 04/19/18 21:20:34 EST Start Date: 04/19/18 Status: Ordered Senna 8.6 mg oral tablet 17.2 mg, 2, tablet, By Mouth, Daily, PRN, # 12 tablet, Refills 0, Tot. Refills 0, Maintenance, Constipation, 04/21/18 15:05:43 EST, Route to Pharmacy Electronically, [id number], [facility] Tablet Start Date: 04/21/18 Status: Ordered Problem List Condition Effective Dates Status Health Status Inform ant Anemia(Confirmed) Active Immune thrombocytopenia(Confirmed) Active Tachycardia(Confirmed) Active Vital Signs Most recent to oldest [Reference Range]: 1 2 Oxygen Saturation [94-100 %] 99 % (03/23/20 12:29 PM) 99 % (03/23/20 12:10 PM) Pulse Rate [55-90 bpm] 101 bpm *H* (03/23/20 12:29 PM) 78 bpm (03/23/20 12:10 PM) Blood Pressure [90-138/55-84 mm Hg] 132/ 96mm Hg (03/23/20 12:29 PM) Respiratory Rate [16-30 br/min] 18 br/mi n (1/6/21 12:29 PM) Temperature [96.8-100.4 DegF] 98.5 DegF (03/23/20 12:29 PM) Mode of Delivery (Oxygen) Room air (03/23/20 12:29 PM) Room air (03/23/20 12:10 PM) Blood pressure sites Arm, left (03/23/20 12:29 PM) Temperature Route Oral (03/23/20 12:29 PM) Social History Social History Type Response Smoking Status Never (less than 100 in lifetime); Tobacco user in household: No entered on: 05/10/18 Sex
== END 2023-04-25 23:33 | disposition home or self-care (01) ==
PROVIDERS: Nurse Practitioner Family; Emergency Provider Emergency Medicine
DX: G43.909 Migraine, unspecified, not intractable, without status migrainosus (principal); Z79.899 Other long term (current) drug therapy
CPT/HCPCS: 36415; 80053; 84702; 85025; 96361; 96374; 96375; 99284; J1200; J2270; J2765

== ENCOUNTER 2024-08-10 18:20 | Emergency (ER) | payer OTHER, SELFPAY ==
--- NOTE | ~2024-08-10 | XR_ITS ---
CLINICAL HISTORY: fall 3 view right ankle Comparison: None Findings: No acute fractures or dislocations. No significant arthritic change or erosions. No ankle effusion.No radiopaque foreign body. Anterolateral ankle soft tissue swelling. IMPRESSION: 1. No acute fracture. This document has been electronically signed by: Kenton Rick MD on 08/10/2024 19:37:56
[2024-08-10 18:22] VITALS: BP 124/90; PULSE 110; RESP 19; TEMP 36.6; O2SAT 99; BMI 31.0
--- NOTE | 2024-08-10 18:22 | ED.GENADULT ---
HPI - General Adult General Chief complaint: Extremity Injury, Lower Stated complaint: right ankle injury Time Seen by Provider: 08/10/24 20:55 Source: patient Limitations: no limitations History of Present Illness ED Provider: Anne-Marie Novoa PA-C HPI narrative: 28-year-old female presents with right ankle pain. Patient states she was walking she subsequently rolled her ankle. Pain now most prominent along posterolateral aspect of the ankle. Pain worse with flexion. Related Data Allergies Allergy/AdvReac Type Severity Reaction Status Date / Time No Known Allergies Allergy Verified 08/10/24 18:23 Review of Systems Review of Systems: Yes all other systems are reviewed and are negative Constitutional: Constitutional: Denies fatigue and Denies fever(s) Musculoskeletal: Musculoskeletal: Reports arthralgias and Reports joint swelling Endocrine: Endocrine: Denies fatigue PMFSH Past Medical History Attestation statement: The following information was validated with the patient. Social History Social History Alcohol intake: current Smoked in Last 30 Days: No Use of substances other than those prescribed or required for medical reasons: Yes Substance Use Type: Marijuana Advance Directives: No Advance Directives Information Provided: Yes Do you have a plan to hurt others: No Plan Patient : No Physical Exam ED Vital Signs: Vital Signs - 24 hr 08/10/24 18:22 08/10/24 19:50 Temperature 98 F 97.6 F Pulse Rate 110 H 84 Respiratory Rate 19 16 Blood Pressure 124/90 H 100/62 Pulse Oximetry 99 98 Oxygen Delivery Method Room Air Room Air BMI result Body Mass Index 31.0 Const Other: Alert well-appearing Orientation/consciousness: patient oriented x3 Resp Effort & Inspection: normal respiratory effort Cardio Other: Normal peripheral perfusion Skin Other: Warm dry no rash Neuro General: patient oriented x3, no focal motor deficits and CN's II-XI intact bilaterally Extrem Other: No deformity noted over the right ankle, able to flex and extend, mild swelling along lateral aspect Psych Other: Cooperative Course Course Course Narrative: RME, this is a rapid medical exam performed by Hira De León please refer to primary provider for complete H&P- 28 year old female presents for evaluation of right ankle pain after twisting it. Plan for x-rays Medical Decision Making Medical Decision Making MDM Narrative: 28-year-old female presents with right ankle pain. Patient states she was walking she subsequently rolled her ankle. Pain now most prominent along posterolateral aspect of the ankle. Pain worse with flexion. No chronic issues History: Per patient I have considered the following differential diagnoses: Fracture, dislocation, sprain, contusion Plan: X-ray obtained from triage there was no fracture dislocation, we will send with crutches and home care instructions I have independently reviewed the following tests: X-ray right ankle:Findings: No acute fractures or dislocations. No significant arthritic change or erosions. No ankle effusion.No radiopaque foreign body. Anterolateral ankle soft tissue swelling. IMPRESSION: 1. No acute fracture. Discharge Plan Discharge Clinical Impression: Right ankle sprain Patient Disposition: Home, Self-Care Instructions: P.R.I.C.E. Treatment (ED), Ankle Sprain (ED), Crutch Instructions (ED) Additional Instructions: The x-ray was negative for fracture or dislocation. Ambulate as tolerated, use the crutches to help ambulate. I would purchase an muet-uud-ptwimlc compression sleeve; the best are found at [employer], you could also find them at [employer] or [employer]. This will help to support and stabilize the joint. Use znta-scu-qqshzlm ibuprofen 600 mg taken every 6 hours with food, with cccy-edi-ayfoihz Tylenol 1000 mg taken every 8 hours. Follow up with your primary care provider as needed. Stand Alone Forms: Work/School Release Print Language: Angolan
--- OUTSIDE RECORDS SUMMARY | 2024-08-10 19:30 | XMS_ITS | Clinical Summary ---
Author Organization [facility] ity Address [id number] [place] [id number] Care Team Providers Care Dehorner Name Role Phone Chasity Vigil MD Primary Care Provider [phone] Surgical History Surgery Date Site/Laterality Comments TONSILLECTOMY PROCEDURE:TONSILLECTOMY Medical History Medical History Date Comments History of ITP DX:History of IT P Family History Medical History Relation Name Comments Cancer Maternal Grandmother breast Diabetes Mother Relation Name Status Comments Maternal Grandmother Mother Social History Tobacco Use Types Packs/Day Years Used Date Smoking Tobacco: Never Smokeless Tobacco: Never Alcohol Use Standard Drinks/Week Comments No 0 (1 standard drink = 0.6 oz pur e alcohol) Comments Unknown Sex and Gender Information Value Date Recorded Sex Assigned at Not on file Legal Sex Female 10:48 AM EST Gender Identity Not on file Sexual Orientation Not on file Obstetrics History Plan of Treatment Health Maintenance Due Date Last Done Comments DTaP,Tdap,and Td Vaccines (1 - Tdap) 2013 Hepatitis B Vaccines (1 of 3 - 19+ 3-dose series) 2013 Cervical Cancer Screening: P ap Smear 12/06/2015 Depression Screening 02/28/2022 HIV Screening 02/28/2022 Hepatitis C Screening 02/28/2022 Social Influencers of Health Screening 02/28/2022 COVID-19 Vaccine ( - 2023-2 5 season) 2023 Influenza Vaccine (Season Ended) 2024 HIB Vaccines Aged Out No longer eligi ble based on patient's age to complete this topic HPV Vaccines Aged Out No longer eligi ble based on patient's age to complete this topic Hepatitis A Vaccines Aged Out No long er eligible based on patient's age to complete this topic IPV Vaccines Aged Out No longer eligi ble based on patient's age to complete this topic MMR Vaccines Aged Out No longer eligi ble based on patient's age to complete this topic Meningococcal ACWY Vaccine Aged Out N o longer eligible based on patient's age to complete this topic Meningococcal B Vaccine Aged Out No l onger eligible based on patient's age to complete this topic Pneumococcal Vaccine: Pediat rics (0 to 5 Years) and At-Risk Patients (6 to 64 Years) Aged Out No longer eligible b ased on patient's age to complete this topic RSV Immunization Patients Un niki 20 months Aged Out No longer eligible b ased on patient's age to complete this topic Varicella Vaccines Aged Out No longer eligible based on patient's age to complete this topic Care Teams Dehorner Relationship Specialty Start Date End Date Chasity Vigil MD [address] [place] [id number] PCP - General Internal Medicine 11/22/21
[2024-08-10 19:50] VITALS: BP 100/62; PULSE 84; RESP 16; TEMP 36.4; O2SAT 98
[2024-08-10 21:36] VITALS: BP 100/62; PULSE 84; RESP 16; TEMP 36.4; O2SAT 98
== END 2024-08-10 21:37 | disposition home or self-care (01) ==
PROVIDERS: Emergency Provider Emergency Medicine
DX: S93.401A Sprain of unspecified ligament of right ankle, initial encounter (principal); X50.1XXA Overexertion from prolonged static or awkward postures, initial encounter; Y93.01 Activity, walking, marching and hiking; Y92.480 Sidewalk as the place of occurrence of the external cause; Y99.9 Unspecified external cause status
CPT/HCPCS: 73610; 99283; 99284

== ENCOUNTER → 2024-08-10 18:22 | Outpatient (BNV) | payer OTHER, SELFPAY | PROVIDERS: Visit Provider Radiology Diagnostic Radiology | DX: S93.401A Sprain of unspecified ligament of right ankle, initial encounter (principal); W19.XXXA Unspecified fall, initial encounter | CPT/HCPCS: 73610 ==